=== PATIENT | female | born 1995 | race African-American/Black ===

== ENCOUNTER 2017-02-04 23:29 | Emergency (ER) | payer OTHER ==
[~2017-02-04] VITALS: Ht 170.2 cm; Wt 157.4 kg
--- NOTE | ~2017-02-04 | EKG ---
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
[2017-02-05] MEDS ORDERED: CYMBALTA30 MG PO (00:53)
[2017-02-05] MEDS ORDERED: PRINIVIL20 MG PO (00:53)
[2017-02-05] MEDS ORDERED: TENORMIN50 MG PO (00:53)
[2017-02-05] MEDS ORDERED: DEPAKOTE 250MG250 M1 PO ×2 (00:54→00:55)
[2017-02-05] MEDS ORDERED: AMBIEN 5 MG TABL5 M1 PO (00:55)
[2017-02-05] MEDS ORDERED: NEURONTIN 300300 M1 PO (00:55)
[2017-02-05] MEDS ORDERED: HYDROCHLOROTHIA25 M2 PO (00:56)
[2017-02-05] MEDS ORDERED: CLARITIN10 MG PO (00:56)
[2017-02-05] MEDS ORDERED: ABILIFY MAINTE300 M1 IM (00:57)
[2017-02-05 01:11] LABS: ABSOLUTE NEUTROPHILS 3.1 thou/uL (1.4-8.2); HEMATOCRIT 39.5 % (37.0-47.0); HEMOGLOBIN 13.3 gm/dL (12.0-15.0); LYMPHOCYTES 44.4 % (24.0-44.0); MCH 29.3 pg (26.0-34.0); MCHC 33.7 g/dL (28.0-37.0); MCV 86.8 fL (80.0-100.0); MONOCYTES 7.2 % (1.0-8.0); PLATELET COUNT 331 thou/uL (150-400); POLYS 45.4 % (36.0-66.0); RBC 4.55 mil/uL (4.20-5.00); RDW 14.1 % (10.5-14.5); WBC 6.9 thou/uL (4.0-11.0)
[2017-02-05 01:13] LABS: MANUAL DIFF NO
[2017-02-05 01:20] LABS: CALCIUM 9.2 mg/dL (8.5-10.1); CREATININE 0.8 mg/dL (0.6-1.0); POTASSIUM 4.7 mmol/L (3.5-5.1)
[2017-02-05 01:24] LABS: AMP/METHAMP Negative (Negative); BARBITURATES Negative (Negative); BENZODIAZEPINES POSITIVE (Negative); COCAINE Negative (Negative); METHADONE Negative (Negative); OPIATES POSITIVE (Negative); PCP Negative (Negative); THC POSITIVE (Negative)
[2017-02-05 01:26] LABS: ALBUMIN 3.3 g/dL (3.4-5.0); TOTAL BILIRUBIN 0.3 mg/dL (<0.1-1.0); TOTAL PROTEIN 7.7 g/dL (6.4-8.2)
[2017-02-05 03:59] VITALS: BP 153/84
== END 2017-02-05 05:29 | disposition home or self-care (01) ==
LOC: ER 23:29
PROVIDERS: Emergency Medicine
DX: R07.9 Chest pain, unspecified (principal); R00.2 Palpitations; F17.210 Nicotine dependence, cigarettes, uncomplicated; F15.10 Other stimulant abuse, uncomplicated; Z88.8 Allergy status to other drugs, medicaments and biological substances

== ENCOUNTER 2017-09-05 15:09 | Inpatient (IN) | payer OTHER ==
[~2017-09-05] VITALS: Ht 170.2 cm; Wt 160.6 kg
[~2017-09-05 15:09] MED LIST: ABILIFY MAINTE300 M1 IM; AMBIEN 5 MG TABL5 M1 PO; CLARITIN10 MG PO; CYMBALTA30 MG PO; DEPAKOTE 250MG250 M1 PO; HYDROCHLOROTHIA25 M2 PO; NEURONTIN 300300 M1 PO; PRINIVIL20 MG PO; TENORMIN50 MG PO
[2017-09-05 15:10] VITALS: BP 144/88
[2017-09-05] MEDS ORDERED: RESTORIL30 MG PO (15:16)
[2017-09-05] MEDS ORDERED: CLONAZEPAM 1 MG1 M1 PO (15:16)
[2017-09-05] MEDS ORDERED: BUSPIRONE HCL10 MG PO (15:16)
[2017-09-05] MEDS ORDERED: TRAZODONE HCL100 MG PO (15:17)
[2017-09-05] MEDS ORDERED: FLEXERIL PO (15:17)
[2017-09-05 16:01] LABS: AMP/METHAMP Negative (Negative); BARBITURATES Negative (Negative); BENZODIAZEPINES Negative (Negative); COCAINE Negative (Negative); METHADONE Negative (Negative); OPIATES Negative (Negative); PCP Negative (Negative); THC POSITIVE (Negative)
[2017-09-05 16:22] LABS: ABSOLUTE NEUTROPHILS 4.1 thou/uL (1.4-8.2); HEMATOCRIT 38.9 % (37.0-47.0); HEMOGLOBIN 12.8 gm/dL (12.0-15.0); MCH 27.6 pg (26.0-34.0); MCV 83.5 fL (80.0-100.0); MONOCYTES 5.7 % (1.0-8.0); PLATELET COUNT 359 thou/uL (150-400); POLYS 61.3 % (36.0-66.0); RBC 4.66 mil/uL (4.20-5.00); RDW 16.5 % (10.5-14.5); WBC 6.8 thou/uL (4.0-11.0)
[2017-09-05 16:23] LABS: MANUAL DIFF NO
[2017-09-05 16:30] LABS: ANION GAP 11 mmol/L (7-16); BUN 12 mg/dL (7-18); CALCIUM 9.4 mg/dL (8.5-10.1); CHLORIDE 102 mmol/L (98-107); CO2 24 mmol/L (21-32); CREATININE 0.7 mg/dL (0.6-1.0); GLUCOSE 88 mg/dL (74-106); POTASSIUM 3.8 mmol/L (3.5-5.1); SODIUM 137 mmol/L (136-145)
[2017-09-05 16:36] LABS: SALICYLATE < 2.8 mg/dL (2.8-20.0)
[2017-09-05 16:46] LABS: ACETAMINOPHEN < 2 ug/mL (10-30)
[2017-09-06] MEDS ORDERED: AMOXICILLIN 50500 MG PO (07:46)
[2017-09-06] MEDS ORDERED: CYMBALTA60 MG PO (07:48)
[2017-09-06] MEDS ORDERED: FIBER500 MG PO (07:50)
[2017-09-06] MEDS ORDERED: IRON325 PO (07:51)
[2017-09-06] MEDS ORDERED: GEODON80 MG PO (07:53)
[2017-09-06] MEDS ORDERED: REVIA 50 MG TAB50 M1 PO (07:53)
[2017-09-06] MEDS ORDERED: PRAZOSIN 1 MG CA1 M1 PO (08:58)
[2017-09-06] MEDS ORDERED: PROTONIX40 M1 PO (09:01)
[2017-09-06] MEDS ORDERED: NICOTINE TRANSD21 M1 (09:01)
[2017-09-06] MEDS ORDERED: VITAMIN D3400 UNIT PO (09:02)
[2017-09-06] MEDS ORDERED: PROAIR HFA8.5 GM (09:03)
[2017-09-06 17:18] LABS: URINE BILIRUBIN NEGATIVE (Negative); URINE BLOOD NEGATIVE (Negative); URINE COLOR YELLOW; URINE GLUCOSE-RANDOM* NEGATIVE (Negative); URINE KETONES NEGATIVE (Negative); URINE PROTEIN (DIPSTICK) NEGATIVE (Negative); URINE UROBILINOGEN 0.2 E.U./dl (0.2-1.0)
[2017-09-06 17:21] LABS: URINE LEUKOCYTES-REFLEX 3+ (Negative)
[2017-09-06 17:29] LABS: CASTS None Seen /LPF (None Seen); CRYSTALS None Seen /LPF (None Seen); SQUAMOUS >10 Many /LPF (0-3); URINE RBC 0-2 Rare /HPF (0-2); URINE WBC-REFLEX >25 Many /HPF (0-5); WBC CLUMPS Rare (None Seen)
[2017-09-06 17:43] VITALS: BP 128/79
[2017-09-06 18:22] VITALS: BP 135/79
[2017-09-06 18:30] VITALS: BP 146/100
[2017-09-06 21:00] VITALS: BP 138/97
== END 2017-09-07 02:30 | disposition short-term general hospital (02) | DRG 918 ==
LOC: ER 15:09 → EROBS 09-06 16:20 → 4E 09-06 18:20
PROVIDERS: Hospitalist; Nurse Practitioner
PROC: 0HQEXZZ Repair Left Lower Arm Skin, External Approach (ICD-10-PCS; principal; 2017-09-06)
DX: T42.4X2A Poisoning by benzodiazepines, intentional self-harm, initial encounter (principal); N39.0 Urinary tract infection, site not specified; S51.812A Laceration without foreign body of left forearm, initial encounter; J45.909 Unspecified asthma, uncomplicated; F32.9 Major depressive disorder, single episode, unspecified; F17.210 Nicotine dependence, cigarettes, uncomplicated; F25.1 Schizoaffective disorder, depressive type; F60.3 Borderline personality disorder; Z88.8 Allergy status to other drugs, medicaments and biological substances; Y92.89 Other specified places as the place of occurrence of the external cause; X78.8XXA Intentional self-harm by other sharp object, initial encounter; Y93.89 Activity, other specified; Y99.8 Other external cause status
CPT/HCPCS: 10084